=== PATIENT | female | born 1945 | race Caucasian/White ===

== ENCOUNTER 2016-12-27 17:09 | Emergency (ER) | payer MEDICARE, BC ==
[~2016-12-27] VITALS: Ht 165.1 cm; Wt 85.0 kg
[~2016-12-27 17:09] MED LIST: ACTONEL5 MG PO; ASPIR-LOW81 MG PO; BYSTOLIC PO; CARBATROL200 MG PO; HCTZ 25MG25 MG PO; LEXAPRO 10MG10 MG PO; LIPITOR 10MG10 MG PO; LOTENSIN10 MG PO; PREMARIN 0.60.625 MG PO; TEGRETOL SUS20 MG/ML PO
[2016-12-27 17:13] VITALS: PULSE 90; TEMP 98.7
[2016-12-27] MEDS ORDERED: DOXYCYCLINE HY100 MG PO (19:22)
[2016-12-27 19:41] VITALS: BP 167/86
== END 2016-12-27 19:43 | disposition home or self-care (01) ==
LOC: COL.ER 17:09
DX: S71.151A Open bite, right thigh, initial encounter (principal); W54.0XXA Bitten by dog, initial encounter; Y92.414 Local residential or business street as the place of occurrence of the external cause; I10 Essential (primary) hypertension; Z53.29 Procedure and treatment not carried out because of patient's decision for other reasons; E11.9 Type 2 diabetes mellitus without complications; Z88.0 Allergy status to penicillin; Z88.4 Allergy status to anesthetic agent

== ENCOUNTER → 2022-01-10 | Outpatient (CLI) | payer MEDICARE, BC ==
[~2022-01-10] MED LIST changes: +DOXYCYCLINE HY100 MG PO
== END ==
LOC: MC.RAD 12:33
DX: N60.01 Solitary cyst of right breast (principal); N63.20 Unspecified lump in the left breast, unspecified quadrant